=== PATIENT | female | born 1990 | race Caucasian/White ===

== ENCOUNTER 2025-07-25 03:13 | Inpatient (IN) ==
[2025-07-25] MEDS: LACTATED RINGER'S 1,000 ML IV PRN (03:50)
[2025-07-25 04:36] LABS: Hematocrit (blood only) 36.5 % (37.0-47.0); Hemoglobin 12.3 g/dl (12.0-16.0); Mean Corpuscular Hemoglobin 29.6 pg (25.0-34.0); Mean Corpuscular Volume 88.0 fL (80.0-100.0); Platelet Count 218 K/uL (130-400); RDW Standard Deviation 47.0 fL (36.4-46.3); Red Blood Count 4.15 M/uL (4.20-5.40); White Blood Count 11.44 K/ul (4.8-10.8)
[2025-07-25 04:53] LABS: Alanine Aminotransferase 5.0 U/L (7-52); Albumin Globulin Ratio 1.1 (0.9-2); Alkaline Phosphatase 209.0 U/L (34-104); Amphetamines+Metham, Urine Neg (Neg); Anion Gap 8.0 (3-11); Bilirubin,Total 0.4 mg/dl (0.2-1.0); Blood Urea Nitrogen 5.0 mg/dl (6-23); Calcium 8.7 mg/dl (8.6-10.3); Carbon Dioxide 21.0 mmol/L (21-32); Chloride 108.0 mmol/L (98-107); Creatinine Clr Calc Pharmacy 154.7 ml/min; Globulin 3.1 gm/dl (2.5-4.0); Glucose 88.0 mg/dl (70-99(Fasting)); MDMA (Ecstacy), Urine Neg (Neg); Marijuana, Urine Neg (Neg); Potassium 3.5 mmol/L (3.5-5.1); Sodium 137.0 mmol/L (136-145); Total Protein 6.4 gm/dl (6.0-8.3)
[2025-07-25] MEDS: OXYTOCIN 30 UNITS/NSS 30 UNITS/500 ML BAG IV PRN (05:19)
[2025-07-25] MEDS ORDERED: HYDROCORTISONE ACETATE 25 MG SUPP PR PRN (05:32)
[2025-07-25] MEDS ORDERED: OXYTOCIN 30 UNITS/NSS 30 UNITS/500 ML BAG IV PRN (05:32)
[2025-07-25] MEDS: LIDOCAINE 1% LOCAL 20 ML VIAL INFIL PRN (05:35)
--- NOTE | 2025-07-25 05:37 | Delivery Summary ---
Vaginal Delivery Summary Date of Service NOTE Patient delivered a live infant male in left occiput anterior presentation there was no nuchal cord which was easily reduced. Infant was delivered and placed on mother's abdomen. Delayed cord clamping was performed. Cord blood is obtained Cord gasses are obtained Meconium is absent Placenta is spontaneously delivered. Placenta appears grossly normal and has 3 vessel cord Inspection of the perineum showed a second-degree midline laceration. Laceration is repaired in layers with 2-0 Vicryl in layers Rectal exam post repair showed good sphincter tone no sutures palpated in the rectum. Quantitative blood loss is 100 cc per Infants weight and scores are in the pediatric record Mother and baby are stable in the recovery
--- NOTE | 2025-07-25 05:39 | Delivery Summary ---
Vaginal Delivery Summary Date of Service July 25,DELIVERY NOTE Patient delivered a live male in left occiput anterior presentation there was no nuchal cord which was easily reduced. was delivered and placed on mother's abdomen. Delayed cord clamping was performed. Cord blood is obtained Cord gasses are obtained Meconium is absent Placenta is spontaneously delivered. Placenta appears grossly normal and has 3 vessel cord Inspection of the perineum showed a second-degree midline laceration. Laceration is repaired in layers with 2-0 Vicryl in layers Rectal exam post repair showed good sphincter tone no sutures palpated in the rectum. Quantitative blood loss is 100 cc per Infants weight and scores are in the pediatric record Mother and baby are stable in in the recovery
[2025-07-25] MEDS: IBUPROFEN 600 MG TAB PO PRN (05:41)
[2025-07-25] MEDS: ACETAMINOPHEN 325 MG TAB PO PRN (05:41)
[2025-07-25] MEDS: BUPIVACAINE 0.25% PF 30 ML VIAL ONE (06:01)
[2025-07-25] MEDS: SODIUM CHLORIDE 0.9% PF INJ 10 ML VIAL ONE (06:02)
[2025-07-25] MEDS: LIDOCAINE 2%/EPINEPHRINE 1:200,000 20 ML PF ONE (06:02)
[2025-07-25] MEDS: fentANYL 2 MCG/ML BUPIVacaine 0.125%-NSS 100ML BAG ONE (06:02)
[2025-07-25] MEDS: FAMOTIDINE 10 MG TABLET PO ONE (06:46)
[2025-07-25 07:30] LABS: Base Excess Cord Arterial Bld -3.8 mEq/L (-9-1.8); Base Excess Cord Venous Blood -3.9 mEq/L (-7.7-1.9); CO2 Cord Arterial Blood 59 mmHg (39.1-73.5); Cord Venous Blood PO2 28 mmHg (14.1-43.3); HCO3 Cord Arterial Blood 25 mmol/L (19.7-28.5); O2 Saturation Cord Venous Bld 62.7 % (<68); Oxygen Sat Cord Arterial Blood < 60.0 % (<60); PO2 Cord Arterial Blood 24 mmHg (4.1-31.7); pH Cord Arterial Blood 7.23 (7.1-7.38)
[2025-07-25] MEDS: METHYLERGONOVINE MALEATE 0.2 MG/ML AMP ONE (08:20)
[2025-07-25] MEDS: TRANEXAMIC ACID / 0.7% NACL 1000MG/100ML BAG IV ONE (08:28)
[2025-07-25] MEDS: PRENATAL VITAMIN 1 TAB PO SCH (08:31)
[2025-07-25] MEDS: DOCUSATE SODIUM 100 MG CAP PO SCH (08:31)
[2025-07-25] MEDS: METHYLERGONOVINE MALEATE 0.2 MG/ML AMP IM STA (08:53)
[2025-07-25] MEDS: TRANEXAMIC ACID / 0.7% NACL 1,000 MG/100 ML BAG IV STA (08:54)
--- NOTE | 2025-07-25 09:56 | Progress Note ---
Date of Service July 25, 2025 Assessment & Plan (1) bleeding: Plan: Called to see patient with moderate bleeding. Patient is status post vaginal delivery at 5:00 AM. Bleeding was unremarkable postdelivery. She had been stable until this morning. Nurse at change of shift noticed significant blood clot and some mild bleeding. On arrival patient was hemodynamic dynamically stable. She had moderate amount of bleeding uterus was firm. Dejesus was placed in the bladder patient was given Methergine IM Cytotec per rectum, IV fluids with Pitocin and TXA was started as well. Bleeding remarkably improved uterus continued to be firm and is to finger's below the umbilicus. Will continue to monitor patient's bleeding. Admission and Anticipated Discharge Date Admission Date: July 25, 2025 Results & Data Vital Signs (Past 12 Hours) Vital Signs Temp Pulse Resp BP Pulse Ox 07/25/25 09:45 59 L 139/83 07/25/25 09:30 65 126/77 07/25/25 09:15 63 132/74 07/25/25 09:00 68 139/89 07/25/25 08:56 63 139/83 07/25/25 08:51 66 123/73 07/25/25 08:46 68 141/93 H 07/25/25 08:41 77 128/80 07/25/25 08:36 68 127/71 07/25/25 08:31 67 144/91 H 07/25/25 08:30 22 144/91 H 07/25/25 08:26 69 130/80 07/25/25 08:21 90 143/98 H 07/25/25 08:16 66 139/98 07/25/25 07:36 80 130/85 07/25/25 07:30 20 130/85 07/25/25 07:04 68 144/90 H 07/25/25 07:00 36.7 C 68 18 144/90 H 07/25/25 06:44 36.5 C 16 07/25/25 06:41 61 132/76 07/25/25 06:07 76 155/78 H 07/25/25 05:52 79 148/83 H 07/25/25 05:37 87 134/96 07/25/25 04:59 87 L 07/25/25 04:59 70 07/25/25 04:59 56 L 90 07/25/25 04:52 88 100 07/25/25 04:51 72 94 07/25/25 04:47 70 99 07/25/25 04:42 75 100 07/25/25 04:35 73 99 07/25/25 04:32 94 H 91 07/25/25 04:30 82 100 07/25/25 04:25 80 98 07/25/25 04:23 81 91 07/25/25 04:20 71 96 07/25/25 04:16 70 93 07/25/25 04:15 71 98 07/25/25 04:10 77 100 07/25/25 04:05 74 100 07/25/25 04:00 79 100 07/25/25 03:55 83 100 07/25/25 03:50 78 100 07/25/25 03:33 36.6 C 68 18 155/91 H 07/25/25 03:29 68 155/91 H
--- NOTE | 2025-07-25 10:00 | Progress Note ---
Date of Service July 25, 2025 Assessment & Plan (1) premature rupture of membranes (PPROM) delivered, current hospitalization: Plan: Patient is a 35-year-old at 32 weeks gestation. Patient presented to labor and delivery with complaints of spontaneous rupture of membranes at 00 500 this morning. On arrival patient was found to be grossly ruptured. Bedside ultrasound shows cephalic presentation heart rate was category 1. There were no contractions. IV fluids were started with magnesium sulfate. Antibiotics were started for latent phase protection. Betamethasone series is started as well. [facility] TRANSPLANT COORDINATOR is consulted attending on-call has agreed to accept patient. Patient will be transferred via ground. Admission and Anticipated Discharge Date Admission Date: July 25, 2025 Results & Data Vital Signs (Past 12 Hours) Vital Signs Temp Pulse Resp BP Pulse Ox 07/25/25 09:45 59 L 139/83 07/25/25 09:30 65 126/77 07/25/25 09:15 63 132/74 07/25/25 09:00 20 139/89 07/25/25 09:00 68 139/89 07/25/25 08:56 63 139/83 07/25/25 08:51 66 123/73 07/25/25 08:46 68 141/93 H 07/25/25 08:41 77 128/80 07/25/25 08:36 68 127/71 07/25/25 08:31 67 144/91 H 07/25/25 08:30 22 144/91 H 07/25/25 08:26 69 130/80 07/25/25 08:21 90 143/98 H 07/25/25 08:16 66 139/98 07/25/25 07:36 80 130/85 07/25/25 07:30 20 130/85 07/25/25 07:04 68 144/90 H 07/25/25 07:00 36.7 C 68 18 144/90 H 07/25/25 06:44 36.5 C 16 07/25/25 06:41 61 132/76 07/25/25 06:07 76 155/78 H 07/25/25 05:52 79 148/83 H 07/25/25 05:37 87 134/96 07/25/25 04:59 87 L 07/25/25 04:59 70 07/25/25 04:59 56 L 90 07/25/25 04:52 88 100 07/25/25 04:51 72 94 07/25/25 04:47 70 99 07/25/25 04:42 75 100 07/25/25 04:35 73 99 07/25/25 04:32 94 H 91 07/25/25 04:30 82 100 07/25/25 04:25 80 98 07/25/25 04:23 81 91 07/25/25 04:20 71 96 07/25/25 04:16 70 93 07/25/25 04:15 71 98 07/25/25 04:10 77 100 07/25/25 04:05 74 100 07/25/25 04:00 79 100 07/25/25 03:55 83 100 07/25/25 03:50 78 100 07/25/25 03:33 36.6 C 68 18 155/91 H 07/25/25 03:29 68 155/91 H
[2025-07-25] MEDS: VENLAFAXINE HCL XR 75 MG CAPXR PO SCH (10:01)
[2025-07-25] MEDS: BENZOCAINE 20% SPRY 85 APPLN/85 GM CAN EXT PRN (10:06)
[2025-07-25] MEDS: DIPHTHER/TETAN/PERTUS Vaccine (Tdap, Adol/Adult) 0.5mL IM ONE (10:43)
[2025-07-25] MEDS: METHYLERGONOVINE MALEATE 0.2 MG TAB PO SCH (12:34)
[2025-07-26 06:12] LABS: Hematocrit (blood only) 28.4 % (37.0-47.0); Hemoglobin 9.4 g/dl (12.0-16.0); Mean Corpuscular Hemoglobin 29.5 pg (25.0-34.0); Mean Corpuscular Volume 89.0 fL (80.0-100.0); Platelet Count 199 K/uL (130-400); RDW Standard Deviation 48.1 fL (36.4-46.3); Red Blood Count 3.19 M/uL (4.20-5.40); White Blood Count 11.04 K/ul (4.8-10.8)
--- NOTE | 2025-07-26 11:27 | Obstetrical Progress Note ---
Date of Service July 26, 2025 Subjective Ambulation: ambulating normally Voiding: no voiding problems Passing Gas:: Yes Diet Tolerance:: regular diet Lochia:: Small Feeding Type:: breast feeding Current Pain Level(1-10): 0 doing well. baby staying 5 days h/o Subutex use currently Physical Exam Constitutional WD/WN, vitals as above Gastrointestinal (Abdomen) Inspection/Auscultation: abdomen normal to inspection abdomen soft and non-tender, uterus firm below U Musculoskeletal Extremities: extremities normal to inspection Skin no rashes, warm and dry Neurologic patellar DTR's 2+ bilat, sensation intact Psychiatric A+Ox3, euthymic affect Results & Data Vital Signs (Past 12 Hours) Vital Signs Temp Pulse Pulse Resp BP BP Pulse Ox 07/26/25 10:50 36.5 C 87 18 137/92 98 07/26/25 07:50 07/26/25 07:50 36.4 C L 75 18 129/82 99 07/26/25 03:50 36.5 C 60 16 128/87 07/26/25 00:20 36.3 C L 86 18 141/91 H 98 O2 Del Method 07/26/25 10:50 07/26/25 07:50 Room Air 07/26/25 07:50 Room Air 07/26/25 03:50 Room Air 07/26/25 00:20 Room Air Laboratory Results 07/25/25 07/25/25 07/25/25 04:08 Unknown Unknown WBC 11.44 H RBC 4.15 L Hgb 12.3 Hct 36.5 L MCV 88.0 MCH 29.6 MCHC 33.7 RDW Std Deviation 47.0 H RDW Coeff of Phoebe 14.8 H Plt Count 218 MPV 11.4 Cord ABG pH 7.23 Cord ABG pCO2 59 Cord ABG pO2 24 Cord ABG HCO3 25 Cord ABG Base Excess -3.8 Cord ABG O2 Sat < 60.0 Cord VBG pH 7.34 Cord VBG pCO2 40 Cord VBG pO2 28 Cord VBG HCO3 22 Cord VBG Base Excess -3.9 Cord VBG O2 Sat 62.7 Blood Gas Comments MAHONEY MAHONEY Sodium 137 Potassium 3.5 Chloride 108 H Carbon Dioxide 21 Anion Gap 8 BUN 5 L Creatinine 0.59 L Est Cr Clr Drug Dosing 154.7 eGFR 121.21 BUN/Creatinine Ratio 8.5 L Glucose 88 Calcium 8.7 Total Bilirubin 0.4 AST 13 ALT 5 L Alkaline Phosphatase 209 H Total Protein 6.4 Albumin 3.3 L Globulin 3.1 Albumin/Globulin Ratio 1.1 Urine Opiates Screen Neg Ur Methadone, Qual Neg Urine Fentanyl Screen Neg Urine Barbiturates Neg Ur Phencyclidine (PCP) Neg U Amphetamin/Meth Scrn Neg MDMA (Ecstasy) Screen Neg U Benzodiazepines Scrn Neg Ur Cocaine Metabolite Neg U Marijuana (THC) Screen Neg Treponema pallidum Ab Negative Blood Type A Negative Antibody Screen NEGATIVE Screen 07/26/25 05:43 WBC 11.04 H RBC 3.19 L Hgb 9.4 L D Hct 28.4 L MCV 89.0 MCH 29.5 MCHC 33.1 RDW Std Deviation 48.1 H RDW Coeff of Phoebe 14.7 H Plt Count 199 MPV 11.5 Cord ABG pH Cord ABG pCO2 Cord ABG pO2 Cord ABG HCO3 Cord ABG Base Excess Cord ABG O2 Sat Cord VBG pH Cord VBG pCO2 Cord VBG pO2 Cord VBG HCO3 Cord VBG Base Excess Cord VBG O2 Sat Blood Gas Comments Sodium Potassium Chloride Carbon Dioxide Anion Gap BUN Creatinine Est Cr Clr Drug Dosing eGFR BUN/Creatinine Ratio Glucose Calcium Total Bilirubin AST ALT Alkaline Phosphatase Total Protein Albumin Globulin Albumin/Globulin Ratio Urine Opiates Screen Ur Methadone, Qual Urine Fentanyl Screen Urine Barbiturates Ur Phencyclidine (PCP) U Amphetamin/Meth Scrn MDMA (Ecstasy) Screen U Benzodiazepines Scrn Ur Cocaine Metabolite U Marijuana (THC) Screen Treponema pallidum Ab Blood Type A Negative Antibody Screen Cancelled Screen Negative
[2025-07-26 21:04] VITALS: TEMP 97.7
[2025-07-26 23:24] VITALS: O2SAT 98
[2025-07-27 06:41] LABS: Hematocrit (blood only) 30.6 % (37.0-47.0); Hemoglobin 10.2 g/dl (12.0-16.0)
[2025-07-27 08:36] VITALS: BP 117/72; RESP 16
--- NOTE | 2025-07-27 10:04 | Obstetrical Progress Note ---
Date of Service July 27, 2025 Assessment & Plan (1) Normal course: Post day # Vaginal delivery PPH Subutex in Pt doing well No complaints Stable vitals Stable labs. H/H: 10.2/30.6 Tolerating PO food and med Pt wishes to be discharged home Results & Data Vital Signs (Past 12 Hours) Vital Signs Temp Pulse Pulse Resp BP Pulse Ox O2 Del Method 07/27/25 08:15 36.5 C 70 16 117/72 98 Room Air 07/26/25 23:00 36.5 C 67 18 132/80 98 Room Air
[2025-07-27 16:18] VITALS: PULSE 67
--- NOTE | 2025-07-29 09:54 | Coding Query ---
CODING QUERY To promote full compliance with coding requirements relating to patient care, provider participation is requested in all cases of professional athletes coach uncertainty. Please assist us with the question(s) below: Coding Question(s): Weeks of Gestation was not mentioned in the account. Please list below so that we made code properly. Physician's Response(s): 37 weeks Thank you Anny Jv Principal Diagnosis: "that condition established after study, to be chiefly responsible for occasioning the admission of the patient to the hospital for care." Co-Existing Principal Diagnosis: "when two or more diagnoses equally meet the criteria for principal diagnosis as determined by the circumstances of admission, diagnostic work up, and/or therapy provided, and the Alphabetic Index, Tabular List, or another coding guideline does not provide sequencing direction, any one of the diagnoses may be sequenced first." "When the physician has documented what appears to be a current diagnosis in the body of the record, but has not included the diagnosis in the final diagnostic statement, the physician should be asked whether the diagnosis should be added." (Source [facility]oding [facility] 2 QTR90. p3-4) [email or web address]
== END 2025-07-27 16:30 | disposition home or self-care (01) | DRG 768 ==
LOC: OPB 03:13 → 4S1 03:15 → 4E2 11:58